=== PATIENT | female | born 1980 | race Two or more races ===

== ENCOUNTER 2018-05-14 06:11 | Emergency (ER) | payer BC ==
[~2018-05-14] VITALS: Ht 152.4 cm; Wt 74.8 kg
[2018-05-14 06:59] LABS: BASOPHIL % 0.6 % (0-2); PLATELET COUNT 334 x10^3mcL (130-400)
[2018-05-14 07:20] LABS: CHLORIDE SERUM 108 mmol/L (98-107); CREATININE SERUM 0.6 mg/dL (0.6-1.0); GFR1 > 60 mL/min; GLUCOSE SERUM 91 mg/dL (74-106); POTASSIUM SERUM 3.8 mmol/L (3.5-5.1); SODIUM SERUM 141 mmol/L (136-145)
[2018-05-14 07:36] LABS: ALKALINE PHOSPHATASE 55 U/L (46-116); ALT/SGPT 13 U/L (14-59); AST/SGOT 14 U/L (15-37); BILIRUBIN TOTAL 0.3 mg/dL (0.20-1.00); TOTAL PROTEIN, SERUM 6.9 g/dL (6.4-8.2)
[2018-05-14 07:37] LABS: ALBUMIN 3.3 g/dL (3.4-5.0)
[2018-05-14 10:26] VITALS: BP 93/55
== END 2018-05-14 10:26 | disposition home or self-care (01) ==
LOC: ED 06:11
PROVIDERS: Emergency Medicine
DX: R42 Dizziness and giddiness (principal); R55 Syncope and collapse; D50.9 Iron deficiency anemia, unspecified; Z98.890 Other specified postprocedural states
CPT/HCPCS: 82962; J2405; J7030; J8597; Q0092